=== PATIENT | female | born 1970 | race Caucasian/White ===

== ENCOUNTER 2017-09-05 10:53 | Day surgery (SDC) | payer OTHER ==
[~2017-09-05] VITALS: Ht 170.2 cm; Wt 108.9 kg
[~2017-09-05 10:53] MED LIST: COZAAR50 MG PO; SYNTHROID300 MCG PO; VENLAFAXINE HC150 MG PO; WELLBUTRIN XL300 MG PO
[2017-09-05 11:16] VITALS: BP 153/85
[2017-09-05 14:30] VITALS: BP 137/73
== END 2017-09-05 15:08 | disposition home or self-care (01) ==
LOC: SDC 10:53
PROC: 01N50ZZ Release Median Nerve, Open Approach (ICD-10-PCS; principal; 2017-09-05)
DX: G56.02 Carpal tunnel syndrome, left upper limb (principal); I10 Essential (primary) hypertension; E03.9 Hypothyroidism, unspecified; Z87.891 Personal history of nicotine dependence
CPT/HCPCS: 93005; J0690; J2250; J2405; J3010; S0020